=== PATIENT | female | born 1985 | race Two or more races ===

== ENCOUNTER 2020-06-25 20:14 | Emergency (ER) | payer MEDICAID ==
[~2020-06-25] VITALS: Ht 149.9 cm; Wt 88.2 kg
[2020-06-25 20:17] VITALS: BP 131/86
--- NOTE | 2020-06-25 20:43 | NUR ---
PT COMES IN C/O INTERMITTENT CHEST PAIN, LEFT ARM NUMBNESS, NAUSEA. STATES SHE WAS SITTING AT WORK AND NOTICED LEFT ARM NUMBNESS, THEN FELT CHEST PAIN. STATES 7/10 CHEST PAIN. MONITORS CONNECTED. WARM BLANKETS PROVIDED
--- NOTE | 2020-06-25 20:44 | NUR ---
XRAY AT BEDSIDE. LABS COMPLETE
[2020-06-25] MEDS ORDERED: ONDANSETRON ODT 4 MG ONE (20:51)
[2020-06-25] MEDS ORDERED: IBUPROFEN 600 MG TABLET ONE (20:51)
[2020-06-25 20:57] LABS: BASOPHILS % (AUTO) 1 % (0-1); EOSINOPHILS % (AUTO) 2 % (1-7); LYMPHOCYTES % (AUTO) 39 % (22-44); MEAN CORPUSCULAR HEMOGLOBIN 28.2 pg (27.0-34.8); MEAN PLATELET VOLUME 8.4 fL (7.4-10.4); MONOCYTES % (AUTO) 3 % (2-9); NEUTROPHILS % (AUTO) 55 % (42-75); PLATELET COUNT 285 x10^3/uL (130-400); RED BLOOD COUNT 4.27 x10^6/uL (3.82-5.3); RED CELL DISTRIBUTION WIDTH 14.2 % (9.6-15.2)
[2020-06-25 21:00] LABS: ALANINE AMINOTRANSFERASE 47 U/L (12-78); ALBUMIN 3.8 g/dL (3.4-5.0); ANION GAP 6 mmol/L (5-15); CALCIUM 8.7 mg/dL (8.5-10.1); CHLORIDE 105 mmol/L (98-107); MD NO
[2020-06-25] MEDS ORDERED: IBUPROFEN 600 MG TABLET PO ONE (21:00)
[2020-06-25] MEDS ORDERED: ONDANSETRON ODT 4 MG PO ONE (21:00)
[2020-06-25 21:05] LABS: ALKALINE PHOSPHATASE 114 U/L (45-117); BILIRUBIN,TOTAL 0.4 mg/dL (0.2-1.0); TOTAL PROTEIN 8.1 g/dL (6.4-8.2); TROPONIN I < 0.015 ng/mL (0.000-0.045)
== END 2020-06-25 21:48 | disposition home or self-care (01) ==
LOC: ED 21:42
DX: S16.1XXA Strain of muscle, fascia and tendon at neck level, initial encounter (principal); R20.2 Paresthesia of skin; R11.0 Nausea; R07.9 Chest pain, unspecified; R94.31 Abnormal electrocardiogram [ECG] [EKG]; E11.9 Type 2 diabetes mellitus without complications; F17.210 Nicotine dependence, cigarettes, uncomplicated; X58.XXXA Exposure to other specified factors, initial encounter; Y93.89 Activity, other specified; Y92.89 Other specified places as the place of occurrence of the external cause; Y99.8 Other external cause status
CPT/HCPCS: 36415; 71045; 80053; 83690; 83880; 84484; 84703; 85025; 93005; 99285; 99406; Q0162